=== PATIENT | female | born 1985 | race American Indian/Alaskan Native ===

== ENCOUNTER 2017-06-10 19:55 | Emergency (ER) | payer SELFPAY ==
[2017-06-10] MEDS ORDERED: TYLENOL ONE (20:48)
[2017-06-10] MEDS ORDERED: TYLENOL PO ONE (20:48)
[2017-06-10 21:07] LABS: Basophils % (Auto) 0.2 % (0.0-1.8); Hemoglobin 14.3 gm/dl (10.1-14.3); Mean Corpuscular HGB Conc 34 % (30-34); Mean Corpuscular Hemoglobin 33 pg (28-32); Mean Corpuscular Volume 96 fl (79-97); Platelet Count 141 K/mm3 (140-440); Red Cell Distribution Width 13.5 % (13.2-15.2); White Blood Count 14.4 K/mm3 (4.5-11.0)
[2017-06-10 21:30] LABS: Alanine Aminotransferase 13 units/L (7-56); Albumin 3.9 g/dL (3.9-5); Albumin/Globulin Ratio 0.8 %; Alkaline Phosphatase 60 units/L (35-129); Anion Gap 20 mmol/L; Blood Urea Nitrogen 14 mg/dL (7-17); Calcium 9.4 mg/dL (8.4-10.2); Carbon Dioxide 25 mmol/L (22-30); Chloride 90.9 mmol/L (98-107); Glucose 104 mg/dL (65-100); Lipase 20 units/L (13-60); Potassium 4.1 mmol/L (3.6-5.0); Sodium 132 mmol/L (137-145); Total Protein 8.6 g/dL (6.3-8.2)
[2017-06-10 22:05] LABS: Bacteria,Urine 3+ /HPF (Negative); Bilirubin,Urine NEG (Negative); Blood,Urine MOD (Negative); Ketones,Urine 80 mg/dL (Negative); Leukocyte Esterase,Urine MOD (Negative); Mucus,Urine 3+ /HPF; Nitrite,Urine NEG (Negative)
[2017-06-10 22:08] LABS: WBC,Urine > 182.0 /HPF (0.0-6.0)
[2017-06-10] MEDS ORDERED: NACL 0.9% 1000 ML 1,000 ML IV ONE (23:02)
[2017-06-10] MEDS ORDERED: ROCEPHIN/NS 1 GM/50 ML 1 GM/50 ML BAG IV ONE (23:03)
[2017-06-10] MEDS ORDERED: MORPHINE IV ONE (23:10)
[2017-06-10] MEDS ORDERED: ZOFRAN IV ONE (23:10)
--- NOTE | 2017-06-10 23:27 | Cat Scan Report ---
FINAL REPORT EXAM: CT ABDOMEN PELVIS W CON HISTORY: RLQ PAIN TECHNIQUE: CT abdomen and pelvis with intravenous contrast PRIORS: None. FINDINGS: No acute abnormality identified in the lung bases. No focal abnormality identified within the liver parenchyma. The spleen demonstrates normal size and attenuation. No pancreatic abnormalities seen. There are focal areas of streaky hypodensity extending through the cortex right kidney appearance consistent with a striated nephrogram. No hydronephrosis. No calculus identified. The adrenal glands are unremarkable Abdominal aorta is normal in caliber. No pathologically enlarged lymph nodes are identified. No signs of free fluid or free air No evidence of small bowel dilatation. Colon is nondistended. No pericolonic inflammatory change. The appendix is not identified. There is marked paucity of body fat with crowding of adjacent structures. Urinary bladder is unremarkable. An IUD seen centrally within the uterus IMPRESSION: Striated right nephrogram. Findings likely reflect acute pyelonephritis
--- NOTE | 2017-06-10 23:29 | Emergency Department Report ---
HPI - General Chief Complaint: Abdominal Pain Time Seen by Provider: 06/10/17 23:02 - HPI HPI: Room 2 The patient is a 32-year-old female presenting with a chief complaint of abdominal pain. The patient states his symptoms began 4 days ago with pain in the right abdomen described as sharp in nature. The patient states the pain has been constant and associated with nausea and vomiting. Patient states she took gas medication but it did not help. Patient denies pain with urinating but states that it "tingles" when she urinates. Patient denies hematuria. Yesterday the patient noted a fever 102.7F. Patient denies anorexia but states she hasn't been able to eat secondary to nausea and vomiting. The patient gives her pain a score of 10/10 Location: Right flank Duration: Constant 4 days Quality: Sharp Severity: 10/10 Modifying factors: [see above] Context: [see above] Mode of transportation: [not driving] ED Past Medical Hx - Surgical History Past Surgical History?: No - Family History Family history: no significant - Social History Smoking Status: Never Smoker Substance Use Type: None - Medications Home Medications: Home Medications Medication Instructions Recorded Confirmed Last Taken Type Acyclovir [Acyclovir] 400 mg PO BID 11/23/14 11/23/14 Unknown History Ibuprofen [Motrin 800 MG tab] 800 mg PO Q6H PRN #30 tablet 11/23/14 Unknown Rx Pnv with Ca,No.72/Iron/FA 1 tab PO DAILY 11/23/14 11/23/14 11/22/14 08:00 History [ Plus Tablet] Cyclobenzaprine [Flexeril] 10 mg PO TID PRN #30 tablet 11/12/15 Unknown Rx HYDROcodone/APAP 5-325 [[place] 1 each PO Q6HR PRN #20 tablet 11/12/15 Unknown Rx 5/325] Ibuprofen [Motrin] 600 mg PO Q8H PRN #40 tablet 11/12/15 Unknown Rx Ciprofloxacin [Ciprofloxacin ORAL 500 mg PO Q12H #20 ml 06/10/17 Unknown Rx LIQ] HYDROcodone/APAP 5-325 [[place] 1 - 2 each PO Q6HR PRN #14 tablet 06/10/17 Unknown Rx 5/325] Ibuprofen [Motrin 800 MG tab] 800 mg PO Q8HR PRN #20 tablet 06/10/17 Unknown Rx Promethazine [Phenergan TAB] 25 mg PO Q6HR PRN #20 tab 06/10/17 Unknown Rx Promethazine [Phenergan] 25 mg TN Q6HR PRN #5 supp.rect 06/10/17 Unknown Rx ED Review of Systems ROS: Stated complaint: LOWER RT SIDE PAIN Other details as noted in HPI Comment: All other systems reviewed and negative Constitutional: fever Eyes: denies: eye pain, eye discharge, vision change ENT: denies: ear pain, throat pain Respiratory: denies: cough, shortness of breath, wheezing Cardiovascular: denies: chest pain, palpitations Endocrine: no symptoms reported Gastrointestinal: abdominal pain, nausea, vomiting Genitourinary: dysuria. denies: hematuria Musculoskeletal: back pain. denies: joint swelling, arthralgia Skin: denies: rash, lesions Neurological: denies: headache, weakness, paresthesias Psychiatric: denies: anxiety, depression Hematological/Lymphatic: denies: easy bleeding, easy bruising Physical Exam - Physical Exam Vital Signs: Vital Signs 06/10/17 06/10/17 20:41 20:50 Temperature 103.1 F H Pulse Rate 120 H Respiratory 18 18 Rate Blood Pressure 109/73 O2 Sat by Pulse 100 Oximetry Physical Exam: GENERAL: The patient is well-developed well-nourished female lying on stretcher not appearing to be in acute distress. [] HEENT: Normocephalic. Atraumatic. Extraocular motions are intact. Patient has moist mucous membranes. NECK: Supple. Trachea midline CHEST/LUNGS: Clear to auscultation. There is no respiratory distress noted. HEART/CARDIOVASCULAR: Regular. There is no tachycardia. There is no gallop rub or murmur. ABDOMEN: Abdomen is soft, with mild discomfort to palpation in the right lower quadrant. Patient has normal bowel sounds. There is no abdominal distention. SKIN: There is no rash. There is no edema. There is no diaphoresis. NEURO: The patient is awake, alert, and oriented. The patient is cooperative. The patient has normal speech MUSCULOSKELETAL: There is no evidence of acute injury. ED Course Vital Signs 06/10/17 06/10/17 20:41 20:50 Temperature 103.1 F H Pulse Rate 120 H Respiratory 18 18 Rate Blood Pressure 109/73 O2 Sat by Pulse 100 Oximetry ED Medical Decision Making - Lab Data Result diagrams: 06/10/17 20:59 06/10/17 20:59 Laboratory Tests 06/10/17 06/10/17 06/10/17 20:59 20:59 20:59 WBC 14.4 H RBC 4.40 Hgb 14.3 Hct 42.0 MCV 96 MCH 33 H MCHC 34 RDW 13.5 Plt Count 141 Lymph % (Auto) 11.0 L [place] % (Auto) 10.1 H Eos % (Auto) 0.0 Baso % (Auto) 0.2 Lymph # 1.6 [place] # 1.5 H Eos # 0.0 Baso # 0.0 Seg Neutrophils % 78.7 H Seg Neutrophils # 11.3 H Sodium 132 L Potassium 4.1 Chloride 90.9 L Carbon Dioxide 25 Anion Gap 20 BUN 14 Creatinine 0.7 Estimated GFR > 60 BUN/Creatinine Ratio 20.00 Glucose 104 H Calcium 9.4 Total Bilirubin 1.60 H AST 18 ALT 13 Alkaline Phosphatase 60 Total Protein 8.6 H Albumin 3.9 Albumin/Globulin Ratio 0.8 Lipase 20 HCG, Qual Negative Urine Color Urine Turbidity Urine pH Ur Specific [place] Urine Protein Urine Glucose (UA) Urine Ketones Urine Blood Urine Nitrite Urine Bilirubin Urine Urobilinogen Ur Leukocyte Esterase Urine WBC (Auto) Urine RBC (Auto) U Epithel Cells (Auto) Urine Bacteria (Auto) Urine WBC Clumps Urine Mucus 06/10/17 21:20 WBC RBC Hgb Hct MCV MCH MCHC RDW Plt Count Lymph % (Auto) [place] % (Auto) Eos % (Auto) Baso % (Auto) Lymph # [place] # Eos # Baso # Seg Neutrophils % Seg Neutrophils # Sodium Potassium Chloride Carbon Dioxide Anion Gap BUN Creatinine Estimated GFR BUN/Creatinine Ratio Glucose Calcium Total Bilirubin AST ALT Alkaline Phosphatase Total Protein Albumin Albumin/Globulin Ratio Lipase HCG, Qual Urine Color [place]isha Urine Turbidity Cloudy Urine pH 6.0 Ur Specific [place] 1.028 Urine Protein 100 mg/dl Urine Glucose (UA) Neg Urine Ketones 80 Urine Blood Mod Urine Nitrite Neg Urine Bilirubin Neg Urine Urobilinogen 4.0 Ur Leukocyte Esterase Mod Urine WBC (Auto) > 182.0 H Urine RBC (Auto) 25.0 U Epithel Cells (Auto) 13.0 Urine Bacteria (Auto) 3+ Urine WBC Clumps 2+ Urine Mucus 3+ - Radiology Data Radiology results: report reviewed (CT abdomen and pelvis), image reviewed (CT abdomen and pelvis) CT abdomen and pelvis (read by radiologist)- Striated right nephrogram. Findings likely reflect acute pyelonephritis - Differential Diagnosis pyelonephritis, appendicitis Critical care attestation.: If time is entered above; I have spent that time in minutes in the direct care of this critically ill patient, excluding procedure time. ED Disposition Clinical Impression: Acute pyelonephritis, Nausea & vomiting, Acute right flank pain Disposition: TO HOME OR SELFCARE Is pt being admited?: No Does the pt Need Aspirin: No Condition: Stable Instructions: Abdominal Pain (ED), Acute Pyelonephritis (ED), Flank Pain (ED) Additional Instructions: Return to the emergency department immediately should you develop worsening symptoms, fever, inability to tolerate food or liquid or any other concerns. Prescriptions: Ciprofloxacin [Ciprofloxacin ORAL LIQ] 500 mg PO Q12H #20 ml HYDROcodone/APAP 5-325 [[place] 5/325] 1 - 2 each PO Q6HR PRN #14 tablet PRN Reason: Pain Ibuprofen [Motrin 800 MG tab] 800 mg PO Q8HR PRN #20 tablet PRN Reason: Pain Promethazine [Phenergan TAB] 25 mg PO Q6HR PRN #20 tab PRN Reason: Nausea Promethazine [Phenergan] 25 mg [place] Q6HR PRN #5 supp.rect PRN Reason: Vomiting Referrals: KATARZYNA CORREIA MD [Staff Physician] - 3-5 Days (Dr. Correia is a primary physician. Please follow up with him to be established as a patient) TWYLA BULLOCK MD [Staff Physician] - 3-5 Days (Dr. Bullock is a urologist. Please follow up with him for further evaluation) Time of Disposition: 23:34
[2017-06-10 23:39] VITALS: BP 114/74
== END 2017-06-11 00:09 | disposition home or self-care (01) ==
LOC: ED 19:55
DX: N10 Acute pyelonephritis (principal); R11.2 Nausea with vomiting, unspecified; R10.9 Unspecified abdominal pain
CPT/HCPCS: 36415; 74177; 80053; 81001; 83690; 84703; 85025; 87086; 96365; 96375; 99284; J0696; J2270; J2405; J7030; Q9966; 87076; 87186